=== PATIENT | female | born 1985 | race Caucasian/White ===

== ENCOUNTER → 2019-05-26 | Outpatient (CLI) | payer BC ==
[2019-05-26 14:43] LABS: FREE T4 (FREE THYROXINE) 0.96 NG/DL (0.70-1.48)
== END ==
LOC: LAB FS 12:52
PROVIDERS: ATTEND Family Medicine
DX: R53.82 Chronic fatigue, unspecified (principal)
CPT/HCPCS: 36415; 84439; 84443

== ENCOUNTER 2019-06-25 09:22 | Emergency (ER) | payer OTHER, BC ==
[~2019-06-25] VITALS: Ht 172.7 cm; Wt 396.0 kg
[2019-06-25 09:41] LABS: HEMOGLOBIN 12.2 G/DL (11.5-16.0); MEAN PLATELET VOLUME 10.2 FL (7.4-10.4); RED CELL DISTRIBUTION WIDTH 13.5 % (10.0-14.5)
[2019-06-25] MEDS ORDERED: NS 100 ML (IVPB) BAG IV ONE (09:45)
[2019-06-25] MEDS ORDERED: TETANUS,DIPTH,PERTUSS P/F (BOOSTRIX) 0.5 ML VIAL IM ONE (09:45)
[2019-06-25] MEDS ORDERED: IOHEXOL 350 MG/ML 100 ML (OMNIPAQUE 350) VIAL IV ONE (09:45)
[2019-06-25] MEDS ORDERED: HOLD METFORMIN - RECEIVED CONTRAST 20 ML VIAL IV SCH (09:45)
[2019-06-25 09:54] LABS: ALANINE AMINOTRANSFERASE 18 U/L (0-55); ALBUMIN 4.5 GM/DL (3.2-4.5); ALKALINE PHOSPHATASE 58 U/L (40-136); AMYLASE 41 U/L (25-125); BILIRUBIN,TOTAL 0.5 MG/DL (0.1-1.0); BUN/CREATININE RATIO 10; CALCIUM 9.1 MG/DL (8.5-10.1); CARBON DIOXIDE 23 MMOL/L (21-32); CHLORIDE 104 MMOL/L (98-107); CREATININE SERUM 0.83 MG/DL (0.60-1.30); GFR ESTIMATED > 60; GLUCOSE 102 MG/DL (70-105); LIPASE 17 U/L (8-78); POTASSIUM 3.5 MMOL/L (3.6-5.0); SODIUM 139 MMOL/L (135-145); TOTAL PROTEIN 6.7 GM/DL (6.4-8.2)
[2019-06-25 09:55] LABS: ALANINE AMINOTRANSFERASE 19 U/L (0-55); ALBUMIN 4.5 GM/DL (3.2-4.5); ALKALINE PHOSPHATASE 59 U/L (40-136); BILIRUBIN,DIRECT 0.2 MG/DL (0.0-0.3); BILIRUBIN,INDIRECT 0.3 MG/DL; BILIRUBIN,TOTAL 0.5 MG/DL (0.1-1.0); TOTAL PROTEIN 6.7 GM/DL (6.4-8.2)
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
[2019-06-25] MEDS ORDERED: CYCL10TA9 PO (10:37)
[2019-06-25] MEDS ORDERED: NAPR-915 PO (10:37)
[2019-06-25] MEDS: MUPIROCIN 2% OINT 22 GM (BACTROBAN) TUBE ONE ×2 (10:39→12:20)
[2019-06-25] MEDS ORDERED: AMOX-358 PO (10:40)
--- NOTE | 2019-06-25 10:42 | Diagnostic Imaging Report ---
INDICATION: Trauma COMPARISON: None FINDINGS: Single view of the pelvis demonstrates no fracture or dislocation. Articular surfaces are normal. There is no radiopaque foreign body. IV contrast is contained within the urinary bladder. IMPRESSION: No fracture or dislocation. Dictated by: Dictated on workstation # [id number]
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
--- NOTE | 2019-06-25 10:50 | NUR ---
ABRASION ON L SHOULDER,AND LACERATION ON KNEE WAS CLEANED WITH BETASEPT AND WATER.
[2019-06-25] MEDS ORDERED: LIDOCAINE/EPI 2% 1:100,00 (XYLOCAINE) 20 ML VIAL ONE (10:59)
[2019-06-25] MEDS ORDERED: LIDOCAINE/EPI 1%-1:100,000 (XYLOCAINE) 20ML INJ ONE (11:00)
[2019-06-25] MEDS ORDERED: KETOROLAC 30 MG/ML VIAL IVP ONE (11:15)
[2019-06-25 11:46] LABS: BILIRUBIN,URINE NEGATIVE (NEGATIVE); CLARITY,URINE CLEAR; COLOR,URINE YELLOW; GLUCOSE, URINE (UA) NEGATIVE (NEGATIVE); KETONES,URINE NEGATIVE (NEGATIVE); LEUKOCYTE ESTERASE ,URINE NEGATIVE (NEGATIVE); NITRITE,URINE NEGATIVE (NEGATIVE); PH,URINE 7.5 (5-9); PROTEIN,URINE NEGATIVE (NEGATIVE)
[2019-06-25 11:52] LABS: BACTERIA,URINE NEGATIVE /HPF
[2019-06-25 11:58] LABS: AMPHETAMINE SCREEN, URINE NEGATIVE (NEGATIVE); BARBITURATE SCREEN URINE NEGATIVE (NEGATIVE); BENZODIAZEPINES SCREEN URINE POSITIVE (NEGATIVE); CANNABINOID SCREEN, URINE NEGATIVE (NEGATIVE); COCAINE SCREEN URINE NEGATIVE (NEGATIVE); METHADONE STAT NEGATIVE (NEGATIVE); METHAMPHETAMINE SCREEN URINE S NEGATIVE (NEGATIVE); OPIATE SCREEN URINE NEGATIVE (NEGATIVE); OXYCODONE STAT NEGATIVE (NEGATIVE); PROPOXYPHENE STAT NEGATIVE (NEGATIVE); TRICYCLIC ANTIDEPRESSANTS SCRE NEGATIVE (NEGATIVE)
[2019-06-25 12:18] VITALS: BP 96/62
--- NOTE | 2019-06-25 12:18 | NUR ---
MUPIROCIN RETURNED TO OMINCELL PATIEINT DID NOT TAKE.
--- NOTE | 2019-06-25 12:18 | NUR ---
DR RODRIGUEZ MADE AWARE OF DISCHARE B/P 96/62 PATINET WHO REPORTS THAT IS NORMAL FOR HER.
--- NOTE | 2019-06-25 12:54 | NUR ---
Offered emotional support for pt who expressed feeling in shock. She was tearful while sharing that she was thankful her children were not in the car with her. 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 RN's and family encouraged pt's rest and recovery.
[2019-06-25] MEDS ORDERED: MUPI1OIN6 TP (13:10)
[2019-06-25] MEDS ORDERED: MUPIROCIN 2% OINT 22 GM (BACTROBAN) TUBE TOP SCH (21:00)
== END 2019-06-25 12:18 | disposition home or self-care (01) ==
LOC: EDUNIT# 09:22 → ER 09:23
DX: S16.1XXA Strain of muscle, fascia and tendon at neck level, initial encounter (principal); S81.011A Laceration without foreign body, right knee, initial encounter; S29.012A Strain of muscle and tendon of back wall of thorax, initial encounter; S20.212A Contusion of left front wall of thorax, initial encounter; S30.1XXA Contusion of abdominal wall, initial encounter; S70.01XA Contusion of right hip, initial encounter; S70.02XA Contusion of left hip, initial encounter; S80.11XA Contusion of right lower leg, initial encounter; S80.12XA Contusion of left lower leg, initial encounter; S00.512A Abrasion of oral cavity, initial encounter; S40.212A Abrasion of left shoulder, initial encounter; R31.21 Asymptomatic microscopic hematuria; F41.9 Anxiety disorder, unspecified; F32.9 Major depressive disorder, single episode, unspecified; R40.2142 Coma scale, eyes open, spontaneous, at arrival to emergency department; R40.2252 Coma scale, best verbal response, oriented, at arrival to emergency department; R40.2362 Coma scale, best motor response, obeys commands, at arrival to emergency department; Z23 Encounter for immunization; Z88.2 Allergy status to sulfonamides; V49.40XA Driver injured in collision with unspecified motor vehicles in traffic accident, initial encounter; Y92.411 Interstate highway as the place of occurrence of the external cause
CPT/HCPCS: 12001; 12031; 36415; 70450; 71045; 71260; 72125; 72128; 72131; 72170; 74177; 80053; 80076; 80306; 80320; 81000; 82150; 83690; 84703; 85027; 86850; 86900; 86901; 90471; 90715; 96374

== ENCOUNTER → 2019-08-19 | Outpatient (CLI) | payer BC ==
[~2019-08-19] MED LIST: AMOX-358 PO; CYCL10TA9 PO; MUPI1OIN6 TP; NAPR-915 PO
[2019-08-20 21:34] LABS: HEPATITIS C ANTIBODY C Non-Reactive (Non-Reactive)
== END ==
LOC: LAB FS 17:00
PROVIDERS: ATTEND Family Medicine
DX: Z11.3 Encounter for screening for infections with a predominantly sexual mode of transmission (principal)
CPT/HCPCS: 36415; 86703; 86780; 86803; 87491; 87591

== ENCOUNTER → 2019-08-20 | Outpatient (CLI) | payer BC | LOC: LABNPT 15:14 | PROVIDERS: ATTEND Family Medicine | DX: Z01.89 Encounter for other specified special examinations (principal) | CPT/HCPCS: 87210 ==

== ENCOUNTER → 2019-12-02 | Outpatient (CLI) | payer OTHER ==
[2019-12-02 14:41] LABS: BILIRUBIN,URINE NEGATIVE (NEGATIVE); CLARITY,URINE SL CLOUDY; COLOR,URINE YELLOW; GLUCOSE, URINE (UA) NEGATIVE (NEGATIVE); KETONES,URINE NEGATIVE (NEGATIVE); LEUKOCYTE ESTERASE ,URINE 1+ (NEGATIVE); NITRITE,URINE POSITIVE (NEGATIVE); PROTEIN,URINE TRACE (NEGATIVE)
[2019-12-02 14:48] LABS: BACTERIA,URINE MODERATE /HPF; WBC,URINE 50-100 /HPF
== END ==
LOC: FSOP 14:33
PROVIDERS: ATTEND Family Medicine
DX: R30.0 Dysuria (principal)
CPT/HCPCS: 81000; 87077; 87088; 87186

== ENCOUNTER → 2020-07-02 | Outpatient (CLI) | payer OTHER ==
[2020-07-02 08:35] LABS: CHLORIDE 101 MMOL/L (98-107); POTASSIUM 3.9 MMOL/L (3.6-5.0); SODIUM 136 MMOL/L (135-145)
[2020-07-02 08:36] LABS: ALANINE AMINOTRANSFERASE 14 U/L (0-55); ALBUMIN 4.4 GM/DL (3.2-4.5); ALKALINE PHOSPHATASE 70 U/L (40-136); BILIRUBIN,TOTAL 0.5 MG/DL (0.1-1.0); BUN/CREATININE RATIO 14; CALCIUM 9.1 MG/DL (8.5-10.1); CARBON DIOXIDE 25 MMOL/L (21-32); CREATININE SERUM 0.79 MG/DL (0.60-1.30); GFR ESTIMATED > 60; GLUCOSE 99 MG/DL (70-105); TOTAL PROTEIN 6.7 GM/DL (6.4-8.2)
[2020-07-02 15:08] LABS: CHOLESTEROL 165 MG/DL (< 200); HDL CHOLESTEROL 46 MG/DL (40-60); TRIGLYCERIDES 83 MG/DL (<150); VLDL CHOLESTEROL 17 MG/DL (5-40)
[2020-07-04 12:43] LABS: HEPATITIS C ANTIBODY C Non-Reactive (Non-Reactive)
== END ==
LOC: LAB FS 07:48
PROVIDERS: ATTEND Family Medicine
DX: Z00.00 Encounter for general adult medical examination without abnormal findings (principal)
CPT/HCPCS: 36415; 80053; 80061; 86703; 86780; 86803

== ENCOUNTER → 2021-05-10 | Outpatient (CLI) | payer BC, OTHER ==
[~2021-05-10] MED LIST changes: +CYCL10TA25 PO; -CYCL10TA9 PO
== END ==
LOC: LABNPT 14:45
PROVIDERS: ATTEND Family Medicine
DX: Z01.419 Encounter for gynecological examination (general) (routine) without abnormal findings (principal)
CPT/HCPCS: 87491; 87591

== ENCOUNTER 2022-06-11 10:30 | Emergency (ER) | payer BC ==
[~2022-06-11] VITALS: Ht 172 cm; Wt 84.6 kg
--- NOTE | 2022-06-11 11:05 | ED Head Injury ---
General Chief Complaint: Head/Cervical Problems Stated Complaint: FALL; HEAD INJ Nursing Triage Note: PT REPORTS SHE WAS 4 RUNGS UP ON A LADDER AND FELL BACKWARDS AND HIT HER HEAD ON CONCRETE. REPORTS NO LOC. Source: patient History of Present Illness Date Seen by Provider: Jun 11, 2022 Time Seen by Provider: 10:41 Initial Comments 37-year-old female patient with history of anxiety and depression states she had a fall from four steps of ladder backward and hit home garage and fell backward on her without loss of consciousness. Patient complaining of swelling of back of her head immediately and rated her pain 4/10. Patient denies focal neurodeficit, nausea, vomiting. Patient presented POV. Occurred: just prior to arrival Severity: mild Location: parietal (Right side) Method of Injury: fell Loss of Consciousness: no loss of consciousness Associated Systoms: Headaches Allergies and Home Medications Allergies Coded Allergies: Sulfa (Sulfonamide Antibiotics) (Verified Allergy, Unknown, 06/25/19) Patient Home Medication List Home Medication List Reviewed: Yes Amoxicillin/Potassium Clav (Augmentin 875-125 Tablet) 1 Each Tablet, 1 EACH PO BID Prescribed by: GERI RODRIGUEZ on 06/25/19 1040 Cyclobenzaprine HCl (Cyclobenzaprine HCl) 10 Mg Tablet, 10 MG PO Q8H Prescribed by: GERI RODRIGUEZ on 06/25/19 1037 Mupirocin (Mupirocin) 1 Gm Oin.pf.reba, 1 GM TP BID Prescribed by: GERI RODRIGUEZ on 06/25/19 1310 Naproxen (Naproxen) 500 Mg Tablet, 500 MG PO BID Prescribed by: GERI RODRIGUEZ on 06/25/19 1037 Review of Systems Review of Systems Constitutional: no symptoms reported Eyes: No Symptoms Reported Ears, Nose, Mouth, Throat: no symptoms reported Respiratory: no symptoms reported Cardiovascular: no symptoms reported Gastrointestinal: no symptoms reported Genitourinary: no symptoms reported : No Musculoskeletal: no symptoms reported Skin: no symptoms reported Psychiatric/Neurological: No Symptoms Reported Endocrine: No Symptoms Reported Hematologic/Lymphatic: No Symptoms Reported Past Bxgzedd-Gpumgf-Xdaxza Hx Patient Social History Tobacco Use?: No Use of E-Cig and/or Vaping dev: No Substance use?: No Alcohol Use?: No Pt feels they are or have been: No Immunizations Up To Date Tetanus Booster (TDap): More than 5yrs First/Initial COVID19 Vaccinat: 2020 Second COVID19 Vaccination Lucas: 2020 Seasonal Allergies Seasonal Allergies: No Past Medical History Surgery/Hospitalization HX: anxiety Surgeries: No Respiratory: No Cardiac: No Neurological: No Reproductive Disorders: No Genitourinary: No Gastrointestinal: No Musculoskeletal: No Endocrine: No HEENT: No Cancer: No Psychosocial: Yes Anxiety, Depression Integumentary: No Blood Disorders: No Physical Exam Vital Signs Vital Signs - First Documented 06/11/22 10:40 Temp 36.7 Pulse 74 Resp 18 B/P (MAP) 138/87 (104) Pulse Ox 97 O2 Delivery Room Air Capillary Refill : Less Than 3 Seconds Height, Weight, BMI Height: '" Weight: lbs. oz. kg; 28.00 BMI Method: General Appearance: WD/WN, no apparent distress HEENT: PERRL/EOMI, normal ENT inspection, TMs normal, pharynx normal Neck: non-tender, full range of motion, supple, normal inspection Cardiovascular: regular rate, rhythm, no edema, no gallop, no JVD, no murmur Respiratory: chest non-tender, lungs clear, normal breath sounds, no respiratory distress, no accessory muscle use Gastrointestinal: normal bowel sounds, non tender, soft, no organomegaly Back: normal inspection, no vertebral tenderness Extremities: normal range of motion, non-tender, normal inspection, no pedal edema, no calf tenderness Psychiatric: alert, oriented x 3 Crainal Nerves: normal hearing, normal speech, PERRL Motor/Sensory: no motor deficit, no sensory deficit Skin: normal color, warm/dry Lymphatic: no adenopathy 5x 5 cm hematoma in right parietal scalp area Progress/Results/Core Measures Results/Orders My Orders Orders - KYLE ROWE MD Ct Head/Cervical Spine Wo (06/11/22 10:49) Vital Signs/I&O 06/11/22 06/11/22 10:40 11:27 Temp 36.7 36.7 Pulse 74 74 Resp 18 18 B/P (MAP) 138/87 (104) 138/87 Pulse Ox 97 97 O2 Delivery Room Air Room Air Blood Pressure Mean: 104 Progress Progress Note : Progress Note Patient presented POV with a fall from 4 steps of ladder at her garage with no loss of consciousness. Patient had a large hematoma of the right parietal area. Patient had unremarkable physical and neuro exam for a scalp hematoma. CT head and cervical spine did not show acute finding except for soft tissue swelling of the right parietal scalp. Patient did not want pain medication in ER or prescription of pain medication. Ice applied to hematoma in ER and advised to continue apply ice for the next 24 hours and take alternate ibuprofen and Tylenol as needed for pain and avoid of activity that can cause another head injury. Patient and her informed about plan of care and is to follow-up as needed and all questions was addressed CT Results/Progress Notes CT head and cervical spine interpreted by radiologist and reviewed by me and showed :NAME: ARIAN MCGOWAN [facility] REC#: [id number] PT STATUS: REG ER : 1985 PHYSICIAN: KYLE ROWE MD ADMIT DATE: 06/11/22/ER FS Draft Date of Exam:06/11/22 CT HEAD/CERVICAL SPINE WO PROCEDURE: CT head and CT cervical spine without contrast. TECHNIQUE: Multiple contiguous axial images were obtained through the brain and cervical spine without the use of intravenous contrast. Sagittal and coronal reformations through the cervical spine were then performed. Auto Exposure Controls were utilized during the CT exam to meet ALARA standards for radiation dose reduction. INDICATION: Fall with head and neck injury. Comparison is made with prior CT from 06/25/2019. CT HEAD: There is soft tissue swelling in the right posterior parietal scalp. Ventricles and sulci are within normal limits. No sulcal effacement or midline shift is identified. No acute intra-axial or extra-axial hemorrhage is detected. Cisterns are patent. Visualized paranasal sinuses are clear. IMPRESSION: Right posterior parietal scalp swelling. No acute intracranial process is detected. CT cervical spine: Alignment is normal. No fracture or subluxation is identified. The prevertebral tissues are within normal limits. Odontoid is intact. IMPRESSION: No acute bony abnormalities detected. Dictated on workstation # [id number] Dict: 06/11/22 1107 Trans: 06/11/22 1112 [id number] Interpreted by: BRITTANY MORRISON MD Electronically signed by: Departure Impression Primary Impression: Injury of head and neck Qualified Codes: S09.90XA - Unspecified injury of head, initial encounter; S19.9XXA - Unspecified injury of neck, initial encounter Additional Impressions: Fall Qualified Codes: W19.XXXA - Unspecified fall, initial encounter Scalp hematoma Qualified Codes: S00.03XD - Contusion of scalp, subsequent encounter Disposition: 01 HOME, SELF-CARE Condition: Stable Departure-Patient Inst. Decision time for Depature: 11:45 Referrals: DEEPAK PARKER MD (PCP) Primary Care Physician Patient Instructions: Contusion (DC) Add. Discharge Instructions: May take alternate Tylenol and ibuprofen every 4 hours as needed for pain Apply ice on scalp hematoma Drink plenty of liquids Follow-up with your primary care physician in 3 to 5 days Return to ER as needed All discharge instructions reviewed with patient and/or family. Voiced understanding. KYLE ROWE MD Jun 11, 2022 11:05
--- NOTE | 2022-06-11 11:12 | Diagnostic Imaging Report ---
PROCEDURE: CT head and CT cervical spine without contrast. TECHNIQUE: Multiple contiguous axial images were obtained through the brain and cervical spine without the use of intravenous contrast. Sagittal and coronal reformations through the cervical spine were then performed. Auto Exposure Controls were utilized during the CT exam to meet ALARA standards for radiation dose reduction. INDICATION: Fall with head and neck injury. Comparison is made with prior CT from 06/25/2019. CT HEAD: There is soft tissue swelling in the right posterior parietal scalp. Ventricles and sulci are within normal limits. No sulcal effacement or midline shift is identified. No acute intra-axial or extra-axial hemorrhage is detected. Cisterns are patent. Visualized paranasal sinuses are clear. IMPRESSION: Right posterior parietal scalp swelling. No acute intracranial process is detected. CT cervical spine: Alignment is normal. No fracture or subluxation is identified. The prevertebral tissues are within normal limits. Odontoid is intact. IMPRESSION: No acute bony abnormalities detected. Dictated by: Dictated on workstation # [id number]
[2022-06-11 11:27] VITALS: BP 138/87
== END 2022-06-11 11:52 | disposition home or self-care (01) ==
LOC: EDUNIT# 10:30 → ER FS 10:32
DX: S09.90XA Unspecified injury of head, initial encounter (principal); S00.03XA Contusion of scalp, initial encounter; S19.9XXA Unspecified injury of neck, initial encounter; W11.XXXA Fall on and from ladder, initial encounter; Y92.015 Private garage of single-family (private) house as the place of occurrence of the external cause
CPT/HCPCS: 70450; 72125